=== PATIENT | male | born 1955 | race Asian ===

== ENCOUNTER 2018-03-10 02:45 | Inpatient (IN) | payer OTHER ==
[2018-03-10] MEDS ORDERED: HEPARIN 1000 UNITS/ML 10 ML INJ (02:58)
[2018-03-10] MEDS ORDERED: LIDOCAINE 1% (MDV) 10 ML INJ (02:58)
[2018-03-10] MEDS ORDERED: FENTAnyl 50 MCG/ML VIAL (02:59)
[2018-03-10] MEDS ORDERED: NITROGLYCERIN (IC) 100 MCG/ML INJ (02:59)
[2018-03-10] MEDS ORDERED: MIDAZOLAM 1 MG/ML 2 ML INJ (02:59)
[2018-03-10] MEDS ORDERED: VERAPAMIL 5 MG INJ (02:59)
[2018-03-10 03:01] LABS: ADD MAN DIFF? NO
[2018-03-10 03:04] LABS: WHITE BLOOD COUNT 10.5 10^3/ul (4.8-10.8)
[2018-03-10 03:04] LABS: BASOPHIL # 0.1 10^3/ul (0.0-0.1); BASOPHILS % 0.6 % (0.0-2.0); EOSINOPHILS # 0.3 10^3/ul (0.0-0.5); EOSINOPHILS % 2.4 % (0.0-7.0); HEMATOCRIT 38.7 % (42.0-52.0); HEMOGLOBIN 13.2 g/dl (14.0-18.0); LYMPHOCYTES # 3.9 10^3/ul (0.8-2.9); LYMPHOCYTES % 37.3 % (15.0-51.0); MEAN CORPUSCULAR HEMOGLOBIN 33.2 pg (29.0-33.0); MEAN CORPUSCULAR HGB CONC 34.1 g/dl (32.0-37.0); MEAN CORPUSCULAR VOLUME 97.2 fl (82.0-101.0); MEAN PLATELET VOLUME 9.1 fl (7.4-10.4); MONOCYTE # 0.8 10^3/ul (0.3-0.9); MONOCYTES % 7.7 % (0.0-11.0); NEUTROPHIL # 5.4 10^3/ul (1.6-7.5); NEUTROPHILS % 51.7 % (39.0-77.0); PLATELET COUNT 211 10^3/UL (140-415); RED BLOOD COUNT 3.98 10^6/ul (4.70-6.10); RED CELL DISTRIBUTION WIDTH 12.3 % (11.5-14.5)
[2018-03-10 03:13] LABS: INR 0.99; PROTIME 13.2 Sec (11.9-14.9)
[2018-03-10 03:16] LABS: ANION GAP 12 (8-16); BLOOD UREA NITROGEN 8 mg/dl (7-20); CALCIUM 8.9 mg/dl (8.4-10.2); CARBON DIOXIDE 24 mmol/L (21-31); CHLORIDE 109 mmol/L (97-110); CREATININE 0.81 mg/dl (0.61-1.24); GLUCOSE 139 mg/dl (70-220); POTASSIUM 3.6 mmol/L (3.5-5.1); SODIUM 141 mmol/L (135-144)
[2018-03-10 03:34] LABS: TROPONIN-I 0.982 ng/ml (0.000-0.120)
[2018-03-10] MEDS ORDERED: TICAGRELOR 90 MG TABLET (04:12)
[2018-03-10] MEDS: SOD CHLORIDE 0.9% 1,000 ML IV (04:14)
[2018-03-10] MEDS ORDERED: GLUCOSE GEL 15 GRAM TUBE BUCCAL (07:30)
[2018-03-10] MEDS ORDERED: GLUCAGON 1 MG INJ IM (07:30)
[2018-03-10] MEDS ORDERED: DEXTROSE 50% 50 ML SYRINGE IV ×2 (07:30)
[2018-03-10] MEDS ORDERED: GLUCOSE GEL 15 GRAM TUBE PO ×2 (07:30)
[2018-03-10 08:54] LABS: HDL CHOLESTEROL 41 mg/dl (30-78); LDL CHOLESTEROL,CALCULATED 65 mg/dl; TRIGLYCERIDES 310 mg/dl (0-149)
[2018-03-10 08:54] LABS: CHOLESTEROL 168 mg/dl (100-200)
[2018-03-10] MEDS: INSULIN ASPART [NOVOLOG] 3 ML PEN SC ×4 (09:21→21:18)
[2018-03-10] MEDS: TICAGRELOR 90 MG TABLET PO ×2 (09:25→21:16)
[2018-03-10] MEDS: LOSARTAN 50 MG TAB PO ×2 (09:28→21:19)
[2018-03-10] MEDS: METOPROLOL 25 MG TAB PO (09:28)
[2018-03-10 10:51] LABS: CREATINE KINASE 312 IU/L (23-200)
[2018-03-10 12:13] LABS: HEMOGLOBIN A1C 7.9 % (0-5.9)
[2018-03-10 15:05] LABS: CREATINE KINASE 289 IU/L (23-200)
[2018-03-10 15:13] LABS: CK-MB 5.91 ng/ml (0.0-2.4)
[2018-03-10] MEDS: ATORVASTATIN 80 MG TAB PO (21:14)
[2018-03-10] MEDS: INSULIN GLARGINE [LANTus] (100 UNITS/ML) SYG SC (21:17)
[2018-03-11] MEDS: ACCU-CHEK XX (02:43)
[2018-03-11 06:29] LABS: ADD MAN DIFF? NO
[2018-03-11 06:31] LABS: BASOPHILS % 0.5 % (0.0-2.0); EOSINOPHILS # 0.2 10^3/ul (0.0-0.5); EOSINOPHILS % 2.5 % (0.0-7.0); HEMATOCRIT 36.8 % (42.0-52.0); HEMOGLOBIN 12.6 g/dl (14.0-18.0); LYMPHOCYTES # 2.7 10^3/ul (0.8-2.9); MEAN CORPUSCULAR HEMOGLOBIN 33.2 pg (29.0-33.0); MEAN CORPUSCULAR HGB CONC 34.2 g/dl (32.0-37.0); MEAN CORPUSCULAR VOLUME 96.8 fl (82.0-101.0); MEAN PLATELET VOLUME 9.4 fl (7.4-10.4); MONOCYTE # 0.7 10^3/ul (0.3-0.9); MONOCYTES % 8.9 % (0.0-11.0); NEUTROPHIL # 4.6 10^3/ul (1.6-7.5); NEUTROPHILS % 54.7 % (39.0-77.0); PLATELET COUNT 202 10^3/UL (140-415); RED CELL DISTRIBUTION WIDTH 12.3 % (11.5-14.5)
[2018-03-11 06:31] LABS: WHITE BLOOD COUNT 8.3 10^3/ul (4.8-10.8)
[2018-03-11 06:56] LABS: ANION GAP 11 (8-16); BLOOD UREA NITROGEN 10 mg/dl (7-20); CALCIUM 9.4 mg/dl (8.4-10.2); CARBON DIOXIDE 25 mmol/L (21-31); CHLORIDE 109 mmol/L (97-110); CREATININE 0.89 mg/dl (0.61-1.24); GLUCOSE 139 mg/dl (70-220); POTASSIUM 3.7 mmol/L (3.5-5.1); SODIUM 141 mmol/L (135-144)
[2018-03-11] MEDS: INSULIN ASPART [NOVOLOG] 3 ML PEN SC ×2 (07:55→12:09)
[2018-03-11] MEDS: LOSARTAN 50 MG TAB PO (08:07)
[2018-03-11] MEDS: TICAGRELOR 90 MG TABLET PO (08:13)
[2018-03-11] MEDS: ASPIRIN (EC) 81 MG TAB PO (11:03)
== END 2018-03-11 13:07 | disposition home or self-care (01) | DRG 247 ==
LOC: E/R 02:45 → REC 03:09 → ICU 04:40 → TEL 16:30
PROC: 027034Z Dilation of Coronary Artery, One Artery with Drug-eluting Intraluminal Device, Percutaneous Approach (ICD-10-PCS; principal; 2018-03-10 03:00)
PROC: 4A023N7 Measurement of Cardiac Sampling and Pressure, Left Heart, Percutaneous Approach (ICD-10-PCS; 2018-03-10 03:00)
PROC: B211YZZ Fluoroscopy of Multiple Coronary Arteries using Other Contrast (ICD-10-PCS; 2018-03-10 03:00)
PROC: B215YZZ Fluoroscopy of Left Heart using Other Contrast (ICD-10-PCS; 2018-03-10 03:00)
DX: I21.19 ST elevation (STEMI) myocardial infarction involving other coronary artery of inferior wall (principal); E11.9 Type 2 diabetes mellitus without complications; I10 Essential (primary) hypertension; E78.5 Hyperlipidemia, unspecified; F17.210 Nicotine dependence, cigarettes, uncomplicated; F10.10 Alcohol abuse, uncomplicated; Z79.4 Long term (current) use of insulin
CPT/HCPCS: 36415; 71045; 80048; 80061; 82550; 82553; 82962; 83036; 84484; 85025; 85610; 85730; 93005; 93306; 93458; 99291-25

== ENCOUNTER 2018-10-20 10:35 | Emergency (ER) | payer SELFPAY, OTHER | END 2018-10-20 16:21 | disposition left against medical advice (07) | LOC: FTE 16:21 | DX: Z53.21 Procedure and treatment not carried out due to patient leaving prior to being seen by health care provider (principal) ==

== ENCOUNTER 2018-10-24 09:13 | Emergency (ER) | payer MEDICARE, OTHER | END 2018-10-24 12:07 | disposition home or self-care (01) | LOC: FTE 09:13 | DX: S62.101A Fracture of unspecified carpal bone, right wrist, initial encounter for closed fracture (principal); I10 Essential (primary) hypertension; E11.9 Type 2 diabetes mellitus without complications; W19.XXXA Unspecified fall, initial encounter; Y92.9 Unspecified place or not applicable; Z79.82 Long term (current) use of aspirin | CPT/HCPCS: 29125; 71045; 72040; 73110-RT; 99284-25 ==